=== PATIENT | female | born 1955 | race Caucasian/White ===

== ENCOUNTER → 2017-06-15 | Outpatient (CLI) | payer MEDICARE ==
[~2017-06-15] MED LIST: BELI400V IV; BENA20TA2 PO; CALC-534 PO; CELE200C PO; CITA20TA5 PO; HYDR200T PO; LEVO25TA2 PO; MYCO500T PO; OLME20TA19 PO; OMEP-110 PO; PRED10TA PO; PROM25AM6 PO; SUMA100T4 PO
== END | disposition home or self-care (01) ==
LOC: CFH 08:51
PROVIDERS: ATTEND Internal Medicine
DX: Z12.31 Encounter for screening mammogram for malignant neoplasm of breast (principal); Z13.820 Encounter for screening for osteoporosis; M85.88 Other specified disorders of bone density and structure, other site; M06.9 Rheumatoid arthritis, unspecified; M89.9 Disorder of bone, unspecified; M94.9 Disorder of cartilage, unspecified; N95.1 Menopausal and female climacteric states
CPT/HCPCS: 77063; 77080; 77067

== ENCOUNTER → 2018-09-05 | Outpatient (CLI) | payer MEDICARE ==
[~2018-09-05] MED LIST changes: -BENA20TA2 PO; +BENA20TA54 PO; +CETI10TA24 PO; -CITA20TA5 PO; +CITA20TA6 PO; -HYDR200T PO; +HYDR200T72 PO; +NITR100C PO; +OLME20TA17 PO; -OLME20TA19 PO
== END | disposition home or self-care (01) ==
LOC: CFH 09:34
PROVIDERS: ATTEND Internal Medicine
DX: Z12.31 Encounter for screening mammogram for malignant neoplasm of breast (principal)
CPT/HCPCS: 77063; 77067

== ENCOUNTER → 2020-01-22 | Outpatient (CLI) | payer MEDICARE ==
[~2020-01-22] MED LIST changes: -CETI10TA24 PO; +CETI10TA76 PO
== END | disposition home or self-care (01) ==
LOC: CFH 09:31
PROVIDERS: ATTEND Internal Medicine
DX: Z12.31 Encounter for screening mammogram for malignant neoplasm of breast (principal); Z13.820 Encounter for screening for osteoporosis; M85.88 Other specified disorders of bone density and structure, other site; N63.21 Unspecified lump in the left breast, upper outer quadrant
CPT/HCPCS: 76641; 77063; 77067; 77080